=== PATIENT | female | born 2000 | race Caucasian/White ===

== ENCOUNTER 2022-12-01 19:14 | Emergency (ER) | payer MEDICAID, OTHER ==
[~2022-12-01] VITALS: Ht 170.2 cm; Wt 106.8 kg
[2022-12-01] MEDS ORDERED: LIDOCAINE 1% HCL (LOCAL ANESTH.) INJ 20ML MDV ID ONE (23:15)
[2022-12-01] MEDS ORDERED: TETANUS-DIPTH-ACEL PERTUSSIS 0.5ML SYR Tdap IM ONE (23:15)
[2022-12-02 01:00] VITALS: BP 119/74
== END 2022-12-02 01:13 | disposition home or self-care (01) ==
LOC: ER 19:14
DX: S61.211A Laceration without foreign body of left index finger without damage to nail, initial encounter (principal); Z88.0 Allergy status to penicillin; W26.8XXA Contact with other sharp object(s), not elsewhere classified, initial encounter; Y93.89 Activity, other specified; Y92.89 Other specified places as the place of occurrence of the external cause; Y99.8 Other external cause status
CPT/HCPCS: 12001; 90471; 90715; 99283; J2001

== ENCOUNTER 2024-06-04 11:51 | Emergency (ER) | payer MEDICAID ==
[~2024-06-04] VITALS: Ht 170.2 cm; Wt 89.8 kg
[2024-06-04 12:39] LABS: Urine Bacteria None Seen /hpf (None Seen)
[2024-06-04 12:54] VITALS: BP 148/90; PULSE 66; RESP 16; TEMP 98.6; O2SAT 100
[2024-06-04 12:56] LABS: Urine Blood Negative /uL (Negative); Urine Clarity Turbid (Clear); Urine Color Light-Yellow (Yellow); Urine Mucus FEW (None Seen); Urine Protein, UAD Negative (Negative); Urine Specific Gravity 1.026 (1.001-1.035); Urine Urobilinogen Normal (Negative); Urine WBC 2 /hpf (0 - 5); Urine pH 5.5 (5.0-9.0)
[2024-06-04 13:12] LABS: Basophils # (auto) 0.1 10 ^3/uL (0-0.2); Basophils % (auto) 0.7 % (0.0-2.0); Eosinophils # (auto) 0.3 10 ^3/uL (0-0.8); Hematocrit 40.2 % (36.0-46.0); Hemoglobin 13.8 g/dL (12.2-16.2); Lymphocytes # (auto) 1.7 10 ^3/uL (0.4-5.4); Lymphocytes % (auto) 23.2 % (10.0-50.0); Mean Corpuscular Hemoglobin 31.2 pg (28.0-32.0); Mean Corpuscular Hgb Conc. 34.3 g/dL (32.0-36.0); Mean Corpuscular Volume 90.8 fL (80.0-100.0); Monocytes # (auto) 0.4 10 ^3/uL (0-1.3); Neutrophils # (auto) 4.8 10 ^3/uL (1.6-8.6); Neutrophils % (auto) 66.1 % (37.0-80.0); Platelet Count (auto) 238 10^3/uL (140-450); Red Blood Cells 4.42 10^6/uL (4.0-5.20); White Blood Cell 7.3 10^3/uL (4.4-10.8)
== END 2024-06-04 13:52 | disposition home or self-care (01) ==
LOC: ER 11:51
DX: R10.2 Pelvic and perineal pain (principal); Z32.02 Encounter for pregnancy test, result negative; Z88.0 Allergy status to penicillin
CPT/HCPCS: 36415; 81001; 81025; 84702; 85025

== ENCOUNTER 2025-02-12 14:36 | Emergency (ER) | payer MEDICAID ==
[~2025-02-12] VITALS: Ht 170.2 cm; Wt 86.6 kg
--- NOTE | 2025-02-12 15:57 | ED.PDOC ---
History of present illness HPI Comments HPI: Poor Historian. 25-year-old female presents to emergency department for evaluation of concerns about the tip of her tongue having some bumps. Patient denies any pain in her tongue or pain anywhere in her body. She was evaluated at the emergency department at [facility] twice and was sent home because there was no acute findings. Patient follow up with her dentist the following day who told her the same thing as well. Patient comes in here for reassurance. Patient has history of anxiety. Denies any other acute symptoms. Past Medical History: Anxiety Past Surgical History: REVIEW OF SYSTEMS: CONSTITUTIONAL: Denies acute: fever, diaphoresis, chills, generalized weakness. HEAD: Denies acute: headache, photophobia Eyes: Denies acute: Double vision, vision loss, eye pain, eye discharge. EARS: Denies acute: tinnitus, hearing loss, ear discharge, ear pain, THROAT: Denies acute: sore throat, swelling, difficulty swallowing , pain with swallowing, change in voice. NECK: Denies acute: neck pain, neck swelling, stiff neck. HEART: Denies acute : chest pain, palpitations, LUNGS: Denies acute: SOB, wheezing, cough, hemoptysis ABDOMEN: Denies acute: abdominal pain, Nausea, Vomiting, diarrhea, melena , hematemesis, hematochezia SKIN: Denies acute: rash, redness, lesions, itchiness. EXTREMITIES: Denies acute: calf pain, numbness, tingling, weakness, denies pain in extremity. Denies acute: Low back pain. Neuro: Denies acute: focal neurological deficit, motor or sensory focal neurological deficit, tremors, seizure like activity, confusion, dizziness, change in mental status, loss of bowel or bladder function, cauda equina like symptoms. : Denies acute: dysuria, hematuria, flank pain, increase in urinary frequency. PSYCH: Denies acute: hallucination, suicidal ideation, homicidal ideation. FEMALE: Denies acute: abnormal vaginal bleeding, foul odor, unusual discharge. PHYSICAL EXAM: General: ----no----acute distress, awake and alert. Head: normocephalic, atraumatic. Neck: supple, trachea is midline, no swelling. No lymphadenopathy Throat: Normal phonation. No swelling, no exudates, no erythema, no obstruction, no drooling, evaluation of the tip of the tongue where patient has some concerns that she thinks it might have some lesions or bumps on it. The tongue looks completely normal. No swelling, no redness, no lesions, nontender to palpation. Patient denies any pain in her tongue she just thinks that when she looked at her tongue that there is possibly some bumps at the tip of her tongue. Eyes:, no erythema, no purulent discharge, no proptosis, no icterus. Heart: regular rate, regular rhythm, no significant murmur appreciated. Lungs: no apparent respiratory distress, Able to speak in full sentences. No wheezing, no rhonchi, no crackles. No stridors Clear to auscultation bilaterally. Abdomen: non tender to palpation, non distended, soft, no guarding, no rebound, + bowel sounds. Neuro: Awake, Alert, oriented to name, self, situation, follows commands GCS=15. Speech is normal. Skin: no petechia, no purpura, no cyanosis, non-pale, not jaundice. Lower extremities: --no - Pitting edema no deformity, no focal swelling, no calf TTP. Makes eye contact. moves all four extremities. Face: no apparent facial droop. Ambulating in the ED independently. No nuchal rigidity, Kernig's sign, Brudzinski's sign, no meningeal signs. 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 Was a procedure done?: No Differential Diagnosis (DM) Differential Diagnosis: N/A X-Ray, Labs, Meds, VS Vital Signs Date Time Temp Pulse Resp B/P (MAP) Pulse Ox O2 Delivery O2 Flow Rate FiO2 02/12/25 16:43 66 02/12/25 16:43 98.6 66 16 147/83 (104) 98 98.6 02/12/25 14:53 97.8 74 18 148/87 (107) 99 97.8 Time of 1ST Reevaluation: 15:56 Reevaluation 1ST: Patient Education/Counseling: Diagnosis, Treatment Family Education/Counseling: Other Comments Patient presented with the above HPI.---tip of tongue complaint---workup was initiated. patient was found with the above mentioned diagnosis. the following medications were ordered: please refer to order lists of meds and tests obtained by myself Dr. Mejia. Patient ED course and VS have been stabilized. Patient has been reassessed in the ED and remained in a stable condition. Pertinent incidental findings were discussed with the patient and/or family. Patient/family voices understanding and is agreeable with plan. Patient has been observed in the ED adequate length of time to insure improvement/stability. Escalation of care considered: Consideration of escalation to observation or admission No acute findings whatsoever. All are normal findings in the oral mucosa and the tongue. No secondary findings to suggest abnormality. Patient denies any pain or swelling. Patient was DISCHARGED home in a stable condition. All the reports of any imaging studies that were ordered by myself were reviewed by myself. Departure 1 Departure Time of Disposition: 15:56 Impression: Primary Impression: Wellness examination Disposition: 01 HOME / SELF CARE / HOMELESS Condition: Stable Additional Instructions: Additional instructions: You MUST follow-up with your primary care/family doctor in 1 to 2 days. If you are unable to see your primary care/family doctor, please return to our emergency room for re-assessment and re-evaluation in 1 to 2 days. Return to the emergency room here in our facility or to the nearest ER [facility] if your symptoms change or worsen. CONSULTATIONS: you MUST Follow-up for consultation as soon as possible with: -ENT doctor in 1-2 days. Please call for appointment You MUST call the consultants office yourself to make an appointment. You may need to arrange that through your insurance and/or your primary/family doctor. If you are unable to see the office [facility] consultant in 1 to 2 days, you must return to our emergency room (or any other ER of your choice) for re-assessment and re- evaluation. Adequate fluid hydration. Discharged With: Self Critical Care Note Critical Care Time?: No LEEANN MEJIA DO Feb 12, 2025 15:57
[2025-02-12 16:43] VITALS: BP 147/83; PULSE 66; RESP 16; TEMP 98.6; O2SAT 98
== END 2025-02-12 16:51 | disposition home or self-care (01) ==
LOC: ER 14:44
DX: Z00.00 Encounter for general adult medical examination without abnormal findings (principal); R51.9 Headache, unspecified; F41.9 Anxiety disorder, unspecified; Z88.0 Allergy status to penicillin

== ENCOUNTER 2025-02-15 16:50 | Emergency (ER) | payer MEDICAID ==
[~2025-02-15] VITALS: Ht 170.2 cm; Wt 88.9 kg
[2025-02-15 18:28] LABS: Basophils # (auto) 0 10 ^3/uL (0-0.2); Basophils % (auto) 0.2 % (0.0-2.0); Eosinophils # (auto) 0 10 ^3/uL (0-0.8); Eosinophils % (auto) 0.3 % (0.0-7.0); Hematocrit 40.9 % (36.0-46.0); Hemoglobin 13.9 g/dL (12.2-16.2); Lymphocytes # (auto) 0.6 10 ^3/uL (0.4-5.4); Mean Corpuscular Hemoglobin 30.6 pg (28.0-32.0); Mean Corpuscular Volume 90.1 fL (80.0-100.0); Monocytes # (auto) 0.1 10 ^3/uL (0-1.3); Monocytes % (auto) 1.4 % (0.0-12.0); Neutrophils # (auto) 7.9 10 ^3/uL (1.6-8.6); Neutrophils % (auto) 91.1 % (37.0-80.0); Platelet Count (auto) 224 10^3/uL (140-450); Red Blood Cells 4.54 10^6/uL (4.0-5.20); Red Cell Distribution Width 12.2 % (11.8-14.3); White Blood Cell 8.7 10^3/uL (4.4-10.8)
[2025-02-15 18:39] LABS: Alanine Aminotransferase 11 U/L (7-40); Albumin 4.7 g/dL (3.2-4.8); Alkaline Phosphatase 50 U/L (46-116); Anion Gap 9 (5-15); Aspartate Aminotransferase 10 U/L (13-40); BUN/Creatinine Ratio 10.5 (10.0-20.0); Blood Urea Nitrogen 11 mg/dL (9-23); Calcium 10.4 mg/dL (8.7-10.4); Carbon Dioxide 24 mmol/L (20-31); Chloride 108 mmol/L (98-107); Glucose 118 mg/dL (74-106); Sodium 141 mmol/L (136-145); Total Protein 7.9 g/dL (5.7-8.2)
[2025-02-15 18:40] LABS: Bilirubin, Total 0.3 mg/dL (0.2-1.0)
--- NOTE | 2025-02-15 19:50 | ED.PDOC ---
History of Present Illness HPI Comments 25-year-old female complaining of left-sided facial numbness. States her face feels mildly swollen. Says she has been having some mild anxiety over the last few days. States she recently started taking prednisone 20 mg today. She was instructed to do so by her primary care doctor for possible see the allergies. Patient denies any trouble speaking denies any trouble swallowing. Chief Complaint: Left Sided Weakness Time Seen by MD: 17:07 Primary Care Provider: ? Reviewed Notes: Nurses Notes Allergies: Coded Allergies: Penicillins (Verified Allergy, Unknown, 12/01/22) Information Source: Patient Mode of Arrival: Ambulatory Past Medical History PAST MEDICAL HISTORY: Anxiety Surgical History: Denies all surgeries AUTOMATION ENGINEER History: No Pertinent AUTOMATION ENGINEER History Family History Family History: Reviewed,noncontributory to illness, No family hx of Cancer, No family hx of DM, No family hx of Heart valentin, No family hx of HTN, No family hx ofKidney valentin, No family hx of Liver valentin, No family hx of Lung valentin, No family hx of Stroke Social History Smoker: Non-Smoker Alcohol: Denies ETOH Use Drugs: Denies Drug Use Lives In: Home Constitutional: denies: chills, diaphoresis, fatigue, fever, malaise, sweats, weakness, others EENTM: denies: blurred vision, double vision, ear bleeding, ear discharge, ear drainage, ear pain, ear ringing, eye pain, eye redness, hearing loss, mouth pain, mouth swelling, nasal discharge, nose bleeding, nose congestion, nose pain, photophobia, tearing, throat pain, throat swelling, voice changes, others Respiratory: denies: cough, hemoptysis, orthopnea, SOB at rest, shortness of breath, SOB with excertion, stridor, wheezing, others Cardiovascular: denies: chest pain, dizzy spells, diaphoresis, Dyspnea on exertion, edema, irregular heart beat, left arm pain, lightheadedness, palpitations, PND, syncope, others Gastrointestinal: denies: abdomen distended, abdominal pain, blood streaked bowels, constipated, diarrhea, dysphagia, difficulty swallowing, hematemesis, melena, nausea, poor appetite, poor fluid intake, rectal bleeding, rectal pain, vomiting, others Genitourinary: denies: abnormal vagina bleeding, burning, dyspareunia, dysuria, flank pain, frequency, hematuria, incontinence, pain, , vagina discharge, urgency, others Neurological: reports: left sided numbness; denies: dizziness, fainting, headache, left sided weakness, numbness, paresthesia, pre-existing deficit, right sided numbness, right sided weakness, seizure, speech problems, tingling, tremors, weakness, others Musculoskeletal: denies: back pain, gout, joint pain, joint swelling, muscle pain, muscle stiffness, neck pain, others Integumetry: denies: bruises, change in color, change in hair/nails, dryness, laceration, lesions, lumps, rash, wounds, others Allergic/Immunocompromised: denies: Difficulty Healing, Frequent Infections, Hives, Itching, others Hematologic/Lymphatic: denies: anemia, blood clots, easy bleeding, easy bruising, swollen glands, others Physical Exam General Appearance: No Apparent Distress, Normal HEENT: Normal ENT Inspection, Pharynx Normal, TMs Normal Neck: Full Range of Motion, Non-Tender, Normal, Normal Inspection Respiratory: Chest Non-Tender, Lungs Clear, No Accessory Muscle Use, No Respiratory Distress, Normal Breath Sounds Cardiovascular: No Edema, No JVD, No Murmur, No Gallop, Normal Peripheral Pulses, Regular Rate/Rhythm Breast Exam: Deferred Gastrointestinal: No Organomegaly, Non Tender, No Pulsatile Mass, Normal Bowel Sounds, Soft Genitalia: Deferred Pelvic: Deferred Rectal: Deferred Extremities: No calf tenderness, Normal capillary refill, Normal inspection, Normal range of motion, Non-tender, No pedal edema Musculoskeletal : Apperance: Normal Neurologic: Alert, life claims examiner II-XII nml as Tested, No Motor Deficits, Normal Affect, Normal Mood, No Sensory Deficits Cerebellar Function: Normal Reflexes: Normal Skin: Dry, Normal Color, Warm Lymphatic: No Adenopathy Was a procedure done? Was a procedure done?: No Differential Dx Considerations may include: Foss's palsy, CVA, TIA, adverse medication reaction. X-Ray, Labs, Meds, VS Vital Signs Date Time Temp Pulse Resp B/P (MAP) Pulse Ox O2 Delivery O2 Flow Rate FiO2 02/15/25 17:00 98.8 79 16 145/82 (103) 98 98.8 Lab Test 02/15/25 18:12 Range/Units White Blood Count 8.7 4.4-10.8 10^3/uL Red Blood Count 4.54 4.0-5.20 10^6/uL Hemoglobin 13.9 12.2-16.2 g/dL Hematocrit 40.9 36.0-46.0 % Mean Corpuscular Volume 90.1 80.0-100.0 fL Mean Corpuscular Hemoglobin 30.6 28.0-32.0 pg Mean Corpuscular Hemoglobin Concent 34.0 32.0-36.0 g/dL Red Cell Distribution Width 12.2 11.8-14.3 % Platelet Count 224 140-450 10^3/uL Mean Platelet Volume 7.7 6.9-10.8 fL Neutrophils (%) (Auto) 91.1 H 37.0-80.0 % Lymphocytes (%) (Auto) 7.0 L 10.0-50.0 % Monocytes (%) (Auto) 1.4 0.0-12.0 % Eosinophils (%) (Auto) 0.3 0.0-7.0 % Basophils (%) (Auto) 0.2 0.0-2.0 % Neutrophils # (Auto) 7.9 1.6-8.6 10 ^3/uL Lymphocytes # (Auto) 0.6 0.4-5.4 10 ^3/uL Monocytes # (Auto) 0.1 0-1.3 10 ^3/uL Eosinophils # (Auto) 0 0-0.8 10 ^3/uL Basophils # (Auto) 0 0-0.2 10 ^3/uL Nucleated Red Blood Cells 0.0 % Sodium Level 141 136-145 mmol/L Potassium Level 5.0 3.5-5.1 mmol/L Chloride Level 108 H 98-107 mmol/L Carbon Dioxide Level 24 20-31 mmol/L Anion Gap 9 5-15 Blood Urea Nitrogen 11 9-23 mg/dL Creatinine 1.05 H 0.550-1.02 mg/dL Glomerular Filtration Rate Calc 77 >90 mL/min BUN/Creatinine Ratio 10.5 10.0-20.0 Serum Glucose 118 H 74-106 mg/dL Calcium Level 10.4 8.7-10.4 mg/dL Total Bilirubin 0.3 0.2-1.0 mg/dL Aspartate Amino Transferase (AST) 10 L 13-40 U/L Alanine Aminotransferase (ALT) 11 7-40 U/L Alkaline Phosphatase 50 46-116 U/L Total Protein 7.9 5.7-8.2 g/dL Albumin 4.7 3.2-4.8 g/dL X-Ray, Labs, Meds, VS Comment Imaging: X-rays and CT scans were reviewed and interpreted by this provider, imaging shows no fractures and no pathological disease. Pending radiology jared henao Laboratory: Labs reviewed and interpreted by this provider. No significant abnormalities noted. Patient has prior medical visits reviewed. Med reconciliation performed Vital signs reviewed Time of 1ST Reevaluation: 19:50 Reevaluation 1ST: Improved Patient Education/Counseling: Diagnosis, Treatment, Need For Follow Up (Advised to discontinue prednisone and follow up with PCP. Return to emergency department if symptoms worsen.) Family Education/Counseling: Diagnosis Departure 1 Departure Time of Disposition: 19:49 Impression: Primary Impression: Adverse reaction to drug Qualified Codes: T50.905A - Adverse effect of unspecified drugs, medicaments and biological substances, initial encounter Disposition: HOME / SELF CARE / HOMELESS Condition: Fair Critical Care Note Critical Care Time?: No Stability Stability form required: No Heart Score Heart Score: Heart Score Response (Comments) Value History N/A 0 EKG N/A 0 Age N/A 0 Risk Factors N/A 0 Troponin N/A 0 Total 0 FAIZAN GALLAGHER CUT ORDER HAND Feb 15, 2025 19:50
[2025-02-15 19:56] VITALS: BP 131/78; PULSE 67; RESP 18; TEMP 97.8; O2SAT 67
== END 2025-02-15 20:00 | disposition home or self-care (01) ==
LOC: ER 16:50
DX: R22.0 Localized swelling, mass and lump, head (principal); T38.0X5A Adverse effect of glucocorticoids and synthetic analogues, initial encounter; F41.9 Anxiety disorder, unspecified; Z88.0 Allergy status to penicillin; Y92.89 Other specified places as the place of occurrence of the external cause
CPT/HCPCS: 36415; 80053; 85025

== ENCOUNTER 2025-02-16 09:51 | Emergency (ER) | payer MEDICAID ==
[~2025-02-16] VITALS: Ht 170.2 cm; Wt 86.8 kg
--- NOTE | 2025-02-16 10:18 | ED.PDOC ---
Eye-HPI HPI Comments 25 y/o F, with PMHx of PTSD and anxiety presents to the ED for CC of eye problem. Patient states, she was prescribed prednisone 20mg x2days ago for allergies by her PCP and has since, been experiencing left sided facial numbness, left eye pressure, and blurred vision. Patient reports, being seen at [facility] yesterday (02/16/25) for SS which have since, not resolved. Patient denies trouble speaking, trouble swallowing, or rash. No other symptoms or modifying factors present at this time. Chief Complaint: Eye Problem Time Seen by MD: 10:00 Primary Care Provider: AMI Reviewed Notes: Nurses Notes, Medications, Allergies Allergies: Coded Allergies: Penicillins (Verified Allergy, Unknown, 12/01/22) Information Source: Patient Mode of Arrival: Ambulatory Timing: Days Duration: Since onset Prehospital treatment: None Eye Location: Left Lids: Normal Conjunctiva: Normal Cornea: Normal Pupils: Normal EOM: Normal Fundus: Normal Slit lamp exam: Normal Anterior chamber: Normal Mouth: Normal ENT Ear Exam: Normal Nose: Normal Sinuses: Normal Oropharynx: Normal Throat Exposed to: None History of: None Last Tetanus: Unknown Associated signs and symptoms: None Past Medical History PAST MEDICAL HISTORY: Anxiety Past Medical History (Other): PTSD Surgical History: Denies all surgeries ENROLLMENT ELIGIBILITY REPRESENTATIVE History: No Pertinent ENROLLMENT ELIGIBILITY REPRESENTATIVE History Family History Family History: Reviewed,noncontributory to illness, No family hx of Cancer, No family hx of DM, No family hx of Heart valentin, No family hx of HTN, No family hx ofKidney valentin, No family hx of Liver valentin, No family hx of Lung valentin, No family hx of Stroke Social History Smoker: Non-Smoker Alcohol: Denies ETOH Use Drugs: Denies Drug Use Lives In: Home Constitutional: denies: chills, diaphoresis, fatigue, fever, malaise, sweats, weakness, others EENTM: reports: blurred vision; denies: double vision, ear bleeding, ear discharge, ear drainage, ear pain, ear ringing, eye pain, eye redness, hearing loss, mouth pain, mouth swelling, nasal discharge, nose bleeding, nose congestion, nose pain, photophobia, tearing, throat pain, throat swelling, voice changes, others Respiratory: denies: cough, hemoptysis, orthopnea, SOB at rest, shortness of breath, SOB with excertion, stridor, wheezing, others Cardiovascular: denies: chest pain, dizzy spells, diaphoresis, Dyspnea on ex ertion, edema, irregular heart beat, left arm pain, lightheadedness, palpitations, PND, syncope, others Gastrointestinal: denies: abdomen distended, abdominal pain, blood streaked bowels, constipated, diarrhea, dysphagia, difficulty swallowing, hematemesis, melena, nausea, poor appetite, poor fluid intake, rectal bleeding, rectal pain, vomiting, others Genitourinary: denies: abnormal vagina bleeding, burning, dyspareunia, dysuria, flank pain, frequency, hematuria, incontinence, pain, , vagina discharge, urgency, others Neurological: denies: dizziness, fainting, headache, left sided numbness, left sided weakness, numbness, paresthesia, pre-existing deficit, right sided numbness, right sided weakness, seizure, speech problems, tingling, tremors, weakness, others Musculoskeletal: denies: back pain, gout, joint pain, joint swelling, muscle pain, muscle stiffness, neck pain, others Integumetry: denies: bruises, change in color, change in hair/nails, dryness, laceration, lesions, lumps, rash, wounds, others Allergic/Immunocompromised: denies: Difficulty Healing, Frequent Infections, Hives, Itching, others Hematologic/Lymphatic: denies: anemia, blood clots, easy bleeding, easy bruising, swollen glands, others Endocrine: denies: excessive hunger, excessive sweating, excessive thirst, excessive urination, flushing, intolerance to cold, intolerance to heat, unexplained weight gain, unexplained weight loss, others Psychiatric: denies: anxiety, bipolar disorder, depression, hopeless, panic disorder, schizophrenia, sleepless, suicidal, others All Other Systems: Reviewed and Negative Physical Exam General Appearance: No Apparent Distress, Normal HEENT: Normal ENT Inspection, Pharynx Normal Neck: Full Range of Motion, Non-Tender, Normal, Normal Inspection Respiratory: Chest Non-Tender, Lungs Clear, No Accessory Muscle Use, No Respi ratory Distress, Normal Breath Sounds Cardiovascular: No Edema, No Murmur, No Gallop, Normal Peripheral Pulses, Regular Rate/Rhythm Breast Exam: Deferred Gastrointestinal: No Organomegaly, Non Tender, No Pulsatile Mass, Normal Bowel Sounds, Soft Genitalia: Deferred Pelvic: Deferred Rectal: Deferred Extremities: No calf tenderness, Normal capillary refill, Normal inspection, Normal range of motion, Non-tender, No pedal edema Musculoskeletal : Apperance: Normal Neurologic: Alert, color making supervisor II-XII nml as Tested, No Motor Deficits, Normal Affect, Normal Mood, No Sensory Deficits Cerebellar Function: Normal Reflexes: Normal Skin: Dry, Normal Color, Warm Lymphatic: No Adenopathy Was a procedure done? Was a procedure done?: No EENT DIFF Eye: Allergic Ear: N/A Nose: N/A Mouth: N/A Sore Throat: N/A X-Ray, Labs, Meds, VS Vital Signs Date Time Temp Pulse Resp B/P (MAP) Pulse Ox O2 Delivery O2 Flow Rate FiO2 02/16/25 10:43 69 18 99 Room Air 02/16/25 10:43 98.2 77 18 131/77 (95) 99 98.2 02/16/25 10:40 67 17 99 Room Air* 0 21 02/16/25 10:00 98.3 67 17 138/66 (90) 99 98.3 Lab Test 02/16/25 10:02 Range/Units POC Glucose 75 70-106 mg/dl [place] [id number] Ph: [phone] DIAGNOSTIC IMAGING Diagnostic Imaging Report : [id number] Signed PATIENT: SANDRA CARTER ACCT: [id number] UNIT: [id number] : 2000 LOC: ER ROOM / BED: / AGE / SEX: 25 / F ADM STATUS: REG ER SERVICE 1015 ORDERING PHYSICIAN: MELLO HEWITT MD PROCEDURE(s): HWOCT - HEAD WITHOUT CONTRAST REASON: left sided facial numbness ORDER NUMBER(s): [id number], ACCESSION NUMBER(s): [id number] CT HEAD WITHOUT CONTRAST INDICATION: left sided facial numbness EXAM DATE: 02/16/2025 10:30 AM COMPARISON: None RADIATION DOSE: CTDIvol: 53.99 mGy, DLP: 755.91 mGy*cm PROCEDURE: CT scans of the head were obtained from the vertex to the skull base. Sagittal and coronal reconstructions were provided. All CT scans at this medical facility are performed using dose modulation techniques as appropriate to a performed exam including the following: Automated exposure control was utilized; adjustment of the MA and/or KV according to patient size; and use of iterative reconstruction technique. FINDINGS: There is sulcal and ventricular prominence. The brainshows normal morphology and rasmussen-white matter differentiation, without intracranial hemorrhage, extra-axial fluid collection, mass effect or acute large vessel infarct. The ventricles are normal in size. The basal cisterns are patent. The skull and visible facial bones are intact. The paranasal sinuses, mastoid air cells and middle ear cavities are well-aerated. The soft tissues of the scalp are unremarkable. IMPRESSION: No acute intracranial abnormality. ATED BY: OSBALDO BAUER MD DICTATED DATE/TIME: 02/16/25 1053 SIGNED BY: OSBALDO BAUER MD SIGNED DATE/TIME: 02/16/25 1053 CC: Time of 1ST Reevaluation: 10:30 Reevaluation 1ST: Unchanged Patient Education/Counseling: Diagnosis, Treatment Family Education/Counseling: No Family Present Departure 1 Departure Time of Disposition: 11:51 (Patient's workup is benign. Patient is likely having anxiety reaction. We will discharge patient home with outpatient follow up) Impression: Primary Impression: Anxiety reaction Additional Impression: Paresthesia Disposition: 01 HOME / SELF CARE / HOMELESS Condition: Stable Referrals: STEVE BAUER MD Additional Instructions: Your workup today was benign. You were referred to neurology. Please call for an appointment. If your symptoms worsen or if any other concerns please return to the emergency room. Discharged With: Self Critical Care Note Critical Care Time?: No Stability Stability form required: No Heart Score Heart Score: Heart Score Response (Comments) Value History N/A 0 EKG N/A 0 Age N/A 0 Risk Factors N/A 0 Troponin N/A 0 Total 0 I personally scribed for MELLO HEWITT MD ([email or web address]) on 02/16/25 at 10:18. Electronically submitted by Carmen Smart ([email or web address]). I personally scribed for MELLO HEWITT MD ([email or web address]) on 02/16/25 at 11:25. Electronically submitted by Carmen Smart ([email or web address]). MELLO HEWITT MD Feb 16, 2025 10:18
[2025-02-16 10:40] VITALS: PULSE 67; RESP 17; O2SAT 99
[2025-02-16 10:43] VITALS: BP 131/77; PULSE 69; RESP 18; TEMP 98.2; O2SAT 99
--- NOTE | 2025-02-16 10:55 | DVH ---
CT HEAD WITHOUT CONTRAST INDICATION: left sided facial numbness EXAM DATE: 02/16/2025 10:30 AM COMPARISON: None RADIATION DOSE: CTDIvol: 53.99 mGy, DLP: 755.91 mGy*cm PROCEDURE: CT scans of the head were obtained from the vertex to the skull base. Sagittal and coronal reconstructions were provided. All CT scans at this medical facility are performed using dose modulation techniques as appropriate t o a performed exam including the following: Automated exposure control was utilized; adjustment of th e MA and/or KV according to patient size; and use of iterative reconstruction technique. FINDINGS: There is sulcal and ventricular prominence. The brainshows normal morphology and rasmussen-whi te matter differentiation, without intracranial hemorrhage, extra-axial fluid collection, mass effect or acute large vessel infarct. The ventricles are normal in size. The basal cisterns are patent. The skull and visible facial bones are intact. The paranasal sinuses, mastoid air cells and middle ear c avities are well-aerated. The soft tissues of the scalp are unremarkable. IMPRESSION: No acute intracranial abnormality.
== END 2025-02-16 11:59 | disposition home or self-care (01) ==
LOC: ER 09:51
DX: F41.1 Generalized anxiety disorder (principal); R20.2 Paresthesia of skin; R20.0 Anesthesia of skin; H53.8 Other visual disturbances; H57.89 Other specified disorders of eye and adnexa; Z88.0 Allergy status to penicillin
CPT/HCPCS: 70450; 82947; 82962

== ENCOUNTER 2025-02-17 14:48 | Inpatient (IN) | payer MEDICAID ==
[~2025-02-17] VITALS: Ht 170.2 cm; Wt 88.3 kg
--- NOTE | 2025-02-17 16:43 | ED.PDOC ---
Eye-HPI HPI Comments This is a 25 year old female presenting to the ED with chief complaint of left eye blurred vision. Patient reports that she has continued to experience left eye blurred vision for the past few days, being seen previously yesterday for the same concern. Patient relays that she visited her PCP today and was told it may be a sinus issue and her anxiety, prescribing her antibiotics. Patient denies any N/V, headache, dizziness, vision loss, or photophobia. Chief Complaint: Eye Problem Time Seen by MD: 16:39 Primary Care Provider: KAYCEE Field Notes: Nurses Notes, Medications, Allergies Allergies: Coded Allergies: Penicillins (Verified Allergy, Unknown, 12/01/22) Information Source: Patient Mode of Arrival: Ambulatory Timing: Days Duration: Since onset Prehospital treatment: None Eye Location: Left Lids: Normal Conjunctiva: Normal Cornea: Normal Pupils: Normal EOM: Normal Fundus: Normal Anterior chamber: Normal Past Medical History PAST MEDICAL HISTORY: Anxiety Surgical History: Denies all surgeries [employer] History: No Pertinent [employer] History Family History Family History: Reviewed,noncontributory to illness, No family hx of Cancer, No family hx of DM, No family hx of Heart valentin, No family hx of HTN, No family hx ofKidney valentin, No family hx of Liver valentin, No family hx of Lung valentin, No family hx of Stroke Social History Smoker: Non-Smoker Alcohol: Denies ETOH Use Drugs: Denies Drug Use Lives In: Home Constitutional: denies: chills, diaphoresis, fatigue, fever, malaise, sweats, weakness, others EENTM: reports: blurred vision; denies: double vision, ear bleeding, ear discharge, ear drainage, ear pain, ear ringing, eye pain, eye redness, hearing loss, mouth pain, mouth swelling, nasal discharge, nose bleeding, nose congestion, nose pain, photophobia, tearing, throat pain, throat swelling, voice changes, others Respiratory: denies: cough, hemoptysis, orthopnea, SOB at rest, shortness of breath, SOB with excertion, stridor, wheezing, others Cardiovascular: denies: chest pain, dizzy spells, diaphoresis, Dyspnea on e xertion, edema, irregular heart beat, left arm pain, lightheadedness, palpitations, PND, syncope, others Gastrointestinal: denies: abdomen distended, abdominal pain, blood streaked bowels, constipated, diarrhea, dysphagia, difficulty swallowing, hematemesis, melena, nausea, poor appetite, poor fluid intake, rectal bleeding, rectal pain, vomiting, others Genitourinary: denies: abnormal vagina bleeding, burning, dyspareunia, dysuria, flank pain, frequency, hematuria, incontinence, pain, , vagina discharge, urgency, others Neurological: denies: dizziness, fainting, headache, left sided numbness, left sided weakness, numbness, paresthesia, pre-existing deficit, right sided numbness, right sided weakness, seizure, speech problems, tingling, tremors, weakness, others Musculoskeletal: denies: back pain, gout, joint pain, joint swelling, muscle pain, muscle stiffness, neck pain, others Integumetry: denies: bruises, change in color, change in hair/nails, dryness, laceration, lesions, lumps, rash, wounds, others Allergic/Immunocompromised: denies: Difficulty Healing, Frequent Infections, Hives, Itching, others Hematologic/Lymphatic: denies: anemia, blood clots, easy bleeding, easy bruising, swollen glands, others Endocrine: denies: excessive hunger, excessive sweating, excessive thirst, excessive urination, flushing, intolerance to cold, intolerance to heat, unexplained weight gain, unexplained weight loss, others Psychiatric: reports: anxiety; denies: bipolar disorder, depression, hopeless, panic disorder, schizophrenia, sleepless, suicidal, others All Other Systems: Reviewed and Negative Physical Exam General Appearance: No Apparent Distress, Normal HEENT: Normal ENT Inspection, Pharynx Normal, TMs Normal Neck: Full Range of Motion, Non-Tender, Normal, Normal Inspection Respiratory: Chest Non-Tender, Lungs Clear, No Accessory Muscle Use, No Respiratory Distress, Normal Breath Sounds Cardiovascular: No Edema, No JVD, No Murmur, No Gallop, Normal Peripheral Pulses, Regular Rate/Rhythm Breast Exam: Deferred Gastrointestinal: No Organomegaly, Non Tender, No Pulsatile Mass, Normal Bowel Sounds, Soft Genitalia: Deferred Pelvic: Deferred Rectal: Deferred Extremities: No calf tenderness, Normal capillary refill, Normal inspection, Normal range of motion, Non-tender, No pedal edema Musculoskeletal : Apperance: Normal Neurologic: Alert, transportation worker II-XII nml as Tested, No Motor Deficits, Normal Affect, Normal Mood, No Sensory Deficits Cerebellar Function: Normal Reflexes: Normal Skin: Dry, Normal Color, Warm Lymphatic: No Adenopathy Was a procedure done? Was a procedure done?: No EENT DIFF Eye: Allergic, Viral, Other (Migraine) Ear: N/A Nose: N/A Mouth: N/A Sore Throat: N/A X-Ray, Labs, Meds, VS Vital Signs Date Time Temp Pulse Resp B/P (MAP) Pulse Ox O2 Delivery O2 Flow Rate FiO2 02/17/25 17:02 98.1 64 20 146/74 (98) 100 98.1 02/17/25 15:02 98.5 70 18 139/87 (104) 97 98.5 Lab Test 02/17/25 16:46 Range/Units White Blood Count 7.7 4.4-10.8 10^3/uL Red Blood Count 4.59 4.0-5.20 10^6/uL Hemoglobin 14.1 12.2-16.2 g/dL Hematocrit 41.3 36.0-46.0 % Mean Corpuscular Volume 90.1 80.0-100.0 fL Mean Corpuscular Hemoglobin 30.7 28.0-32.0 pg Mean Corpuscular Hemoglobin Concent 34.0 32.0-36.0 g/dL Red Cell Distribution Width 12.0 11.8-14.3 % Platelet Count 241 140-450 10^3/uL Mean Platelet Volume 7.6 6.9-10.8 fL Neutrophils (%) (Auto) 67.5 37.0-80.0 % Lymphocytes (%) (Auto) 25.2 10.0-50.0 % Monocytes (%) (Auto) 5.0 0.0-12.0 % Eosinophils (%) (Auto) 1.7 0.0-7.0 % Basophils (%) (Auto) 0.6 0.0-2.0 % Neutrophils # (Auto) 5.2 1.6-8.6 10 ^3/uL Lymphocytes # (Auto) 1.9 0.4-5.4 10 ^3/uL Monocytes # (Auto) 0.4 0-1.3 10 ^3/uL Eosinophils # (Auto) 0.1 0-0.8 10 ^3/uL Basophils # (Auto) 0 0-0.2 10 ^3/uL Nucleated Red Blood Cells 0.1 % Sodium Level 139 136-145 mmol/L Potassium Level 4.3 3.5-5.1 mmol/L Chloride Level 104 98-107 mmol/L Carbon Dioxide Level 24 20-31 mmol/L Anion Gap 11 5-15 Blood Urea Nitrogen 11 9-23 mg/dL Creatinine 0.94 0.550-1.02 mg/dL Glomerular Filtration Rate Calc 87 >90 mL/min BUN/Creatinine Ratio 11.7 10.0-20.0 Serum Glucose 82 74-106 mg/dL Calcium Level 10.6 H 8.7-10.4 mg/dL Time of 1ST Reevaluation: 17:39 Reevaluation 1ST: Unchanged Patient Education/Counseling: Diagnosis, Treatment Family Education/Counseling: No Family Present Additional Information Previous visits reviewed: 02/16/25 for anxiety reaction The following tests were ordered, and results were reviewed by me: CBC, BMP Additional Information was gathered from interviewing the following independent historians: None I reviewed and agreed with the following test results read by other providers: None I discussed treatment and results with medical personnel and: patient Comprehensive systems review obtained and negative except for what is stated in the HPI. Departure 1 Departure Time of Disposition: 17:32 (Patient likely with status migrainous. Patient with multiple visits here with left-sided I pain and blurry vision swallows left-sided headache. Patient had a CT scan yesterday which was benign. Patient with multiple visits to the ER and a primary care doctor without relief. We will admit patient for further workup) Impression: Primary Impression: Blurry vision, left eye Additional Impression: Migraine Qualified Codes: G43.111 - Migraine with aura, intractable, with status migrainosus Disposition: ADMITTED INPATIENT Admit to: Med Surg Condition: Serious Critical Care Note Critical Care Time?: No Stability Stability form required: No Heart Score Heart Score: Heart Score Response (Comments) Value History N/A 0 EKG N/A 0 Age N/A 0 Risk Factors N/A 0 Troponin N/A 0 Total 0 I personally scribed for MELLO HEWITT MD ([email or web address]) on 02/17/25 at 16:43. Electronically submitted by Zechariah Hdz ([email or web address]). MELLO HEWITT MD Feb 17, 2025 16:43
[2025-02-17 16:55] LABS: Basophils # (auto) 0 10 ^3/uL (0-0.2); Basophils % (auto) 0.6 % (0.0-2.0); Eosinophils # (auto) 0.1 10 ^3/uL (0-0.8); Eosinophils % (auto) 1.7 % (0.0-7.0); Hematocrit 41.3 % (36.0-46.0); Hemoglobin 14.1 g/dL (12.2-16.2); Lymphocytes # (auto) 1.9 10 ^3/uL (0.4-5.4); Lymphocytes % (auto) 25.2 % (10.0-50.0); Mean Corpuscular Hemoglobin 30.7 pg (28.0-32.0); Mean Corpuscular Volume 90.1 fL (80.0-100.0); Monocytes # (auto) 0.4 10 ^3/uL (0-1.3); Neutrophils # (auto) 5.2 10 ^3/uL (1.6-8.6); Neutrophils % (auto) 67.5 % (37.0-80.0); Nucleated Red Blood Cells % 0.1 %; Platelet Count (auto) 241 10^3/uL (140-450); Red Blood Cells 4.59 10^6/uL (4.0-5.20); White Blood Cell 7.7 10^3/uL (4.4-10.8)
[2025-02-17 17:05] LABS: Anion Gap 11 (5-15); Carbon Dioxide 24 mmol/L (20-31); Chloride 104 mmol/L (98-107); Potassium 4.3 mmol/L (3.5-5.1); Sodium 139 mmol/L (136-145)
[2025-02-17 17:11] LABS: BUN/Creatinine Ratio 11.7 (10.0-20.0); Blood Urea Nitrogen 11 mg/dL (9-23); Calcium 10.6 mg/dL (8.7-10.4); Glucose 82 mg/dL (74-106)
[2025-02-17] MEDS: SODIUM CHLORIDE 0.9% 1,000 ML IV ONE (18:30)
[2025-02-17] MEDS: ACETAMINOPHEN 325 MG TAB PO ONE (18:39)
[2025-02-17] MEDS: METOCLOPRAMIDE HCL 5MG/ml INJ 2ml VIAL IV ONE (18:39)
[2025-02-17 18:43] VITALS: PULSE 81; RESP 19; O2SAT 96
[2025-02-17] MEDS ORDERED: ONDANSETRON HCL 4 MG/2 ML VIAL IV PRN (20:45)
[2025-02-17] MEDS ORDERED: MORPHINE SULFATE INJ 2 MG/ml SYRG IV PRN ×2 (20:45)
[2025-02-17] MEDS ORDERED: DOCUSATE SOD 100 MG CAP PO PRN (20:45)
[2025-02-17] MEDS ORDERED: NITROGLYCERIN 0.4 MG SL TAB SL PRN (20:45)
[2025-02-17 21:30] LABS: Alanine Aminotransferase 16 U/L (7-40); Albumin 4.6 g/dL (3.2-4.8); Anion Gap 12 (5-15); BUN/Creatinine Ratio 11.4 (10.0-20.0); Bilirubin, Total 0.7 mg/dL (0.2-1.0); Blood Urea Nitrogen 10 mg/dL (9-23); CRP High Sensitivity 0.23 mg/dL (<1.0); Calcium 9.9 mg/dL (8.7-10.4); Carbon Dioxide 23 mmol/L (20-31); Chloride 105 mmol/L (98-107); Glucose 98 mg/dL (74-106); Sodium 140 mmol/L (136-145); Total Protein 7.6 g/dL (5.7-8.2)
[2025-02-17 21:31] LABS: Alkaline Phosphatase 42 U/L (46-116); Aspartate Aminotransferase 11 U/L (13-40); Blood Alcohol < 3.0 mg/dL (<10)
[2025-02-17 21:40] VITALS: O2SAT 100
--- NOTE | 2025-02-17 21:44 | DVH ---
Carotid Duplex Date: 02/17/2025 09:09 PM Clinical History: rule out any obstruction Comparison: None Technique: Duplex Doppler evaluation of the extracranial carotid and vertebral arteries including col or Doppler and spectral/pulsed waveform analysis was performed. Findings: RIGHT SIDE: The peak systolic velocities are 87 cm/s in the distal CCA and 114 cm/s in the proximal ICA.The ICA/C CA ratio is less than 2. The external carotid artery is patent with peak systolic velocity of 96 cm/s proximally. There is appropriate antegrade flow in the right vertebral artery. LEFT SIDE: The peak systolic velocities are 98 cm/s in the distal CCA and 125 cm/s in the proximal ICA.. The ICA /CCA ratio is less than 2. The external carotid artery is patent with peak systolic velocity of 83 cm/s proximally. There is appropriate antegrade flow in the left vertebral artery. IMPRESSION: 1. No hemodynamically significant stenosis noted in the right carotid system. 2. No hemodynamically significant stenosis noted in the left carotid system. 3. Reference: Radiology 2003; 229:340-346
[2025-02-17] MEDS: LORATADINE 10 MG TAB PO ONE (21:49)
[2025-02-17 21:50] VITALS: PULSE 76; RESP 16; O2SAT 100
--- NOTE | 2025-02-17 21:57 | DVHHPRES ---
History of Present Illness Resident Creating Document: MERCEDES DUMONT RESIDENT History of Present Illness Ms. Sesay, is a 25-year-old female with past medical history of obesity, allergic rhinitis, seasonal allergy, asthma, primary headache and anxiety presents to the ED with a chief complaint of blurred vision in the left eye, ongoing for several days. She arrived ambulatory and reports no prehospital treatment. She was evaluated yesterday for the same issue and followed up with her PCP today, who suggested the symptoms may be related to sinus issues and anxiety, prescribing antibiotics. She denies associated symptoms including nausea, vomiting, headache, dizziness, vision loss, or photophobia. On exami nation, all ocular structuresincluding lids, conjunctiva, cornea, pupils, extraocular movements, fundus, and anterior chamberwere normal and noncontrast CT head was negative as well. The differential diagnosis includes anxiety reaction and migraine with aura (intractable, with status migraines), given the patient's recurrent left-sided eye pain, blurry vision, and headache despite a benign CT scan and multiple prior evaluations without relief and recurrent ED visits was admitted to rule out acute neurovascular conditions to preserve vision. Last ED visit a day before. Her PCP is Dr. Burch. Past Medical History obesity, allergic rhinitis, seasonal allergy, asthma, primary headache and anxiety Family History: Hypertension Family History Grossly noncontributory, no hypo or hypercoagulable disorder Smoke: No ALCOHOL: rare Drugs: None Lives: with Family Domestic Violence: Neg Review of Systems Constitutional: No: Fever, Chills, Sweats, Weakness, Malaise, Other Eyes: No: Pain, Vision change, Conjunctivae inflammation, Eyelid inflammation, Other, Redness ENT: Nose congestion, Other (blurred vision); No: Ear pain, Ear discharge, Nose pain, Nose discharge, Mouth pain, Mouth swelling, Throat pain, Throat swelling Respiratory: No: Cough, Dry, Shortness of breath, SOB with excertion, Wheezing, Hemoptysis, Pleuritic Pain, Sputum, Wheezing, Other Cardiovascular: No: Chest Pain, Palpitations, Orthopnea, Paroxysmal Noc. Dyspnea, Edema, Lt Headedness, Other Gastrointestinal: No: Nausea, Vomiting, Abdominal Pain, Diarrhea, Constipation, Melena, Hematochezia, Other Genitourinary: No Dysuria, No Frequency, No Incontinence, No Hematuria, No Retention, No Other Skin: No: Rash, Lesions, Jaundice, Bruising, Other Neurological: No: Weakness, Numbness, Incoordination, Change in speech, Confusion, Seizures, Other Allergies: Coded Allergies: Penicillins (Verified Allergy, Unknown, 12/01/22) Medications Current Medications Medications Dose Ordered Sig/Erna Route Start Time Stop Time Status Last Admin Dose Admin Ondansetron HCl 4 mg Q4HP PRN IV 02/17/25 20:45 Docusate Sodium 100 mg BIDPRN PRN PO 02/17/25 20:45 Acetaminophen 650 mg Q6HP PRN PO 02/17/25 20:45 Morphine Sulfate 2 mg Q4HPRN PRN IV 02/17/25 20:45 Nitroglycerin 0.4 mg Q5MINP PRN SL 02/17/25 20:45 Morphine Sulfate 2 mg Q30M PRN IV 02/17/25 20:45 Hydroxyzine HCl 10 mg Q6HP PRN PO 02/17/25 21:15 Loratadine 10 mg DAILY PO 02/18/25 10:00 Albuterol 2.5 mg Q6HWA PRN NEB 02/17/25 21:15 Lactated Ringer's 1,000 ml @ 100 mls/hr Q10H IV 02/17/25 21:30 UNV Exam Vital Signs Vital Signs Date Time Temp Pulse Resp B/P (MAP) Pulse Ox O2 Delivery O2 Flow Rate FiO2 02/17/25 18:43 81 19 96 Room Air* 0 21 02/17/25 17:02 98.1 146/74 (98) 98.1 Exam General Appearance: No apparent distress; patient appears well and in normal condition. HEENT: Head atraumatic and normocephalic. Ears, nose, and throat inspection normal. Tympanic membranes and pharynx normal. Neck: Full range of motion, non-tender, no lymphadenopathy, normal inspection. Respiratory: Chest non-tender. Lungs clear to auscultation bilaterally. No use of accessory muscles. No respiratory distress. Breath sounds normal. Cardiovascular: Regular rate and rhythm. No murmurs, gallops, or rubs. No jugular venous distention (JVD). No peripheral edema. Peripheral pulses normal. Breast Exam: Deferred. Gastrointestinal: Abdomen soft, non-tender, no organomegaly, no pulsatile masses. Bowel sounds normal. Genitalia: Deferred. Pelvic: Deferred. Rectal: Deferred. Extremities: No calf tenderness. Normal capillary refill. No pedal edema. Normal inspection and range of motion. Non-tender. Musculoskeletal: Normal appearance. No deformities or abnormalities noted. Neurologic: Alert and oriented. Cranial nerves IIXII intact. No motor or sensory deficits. Normal mood and affect. Cerebellar Function: Normal coordination and balance. Reflexes: Normal deep tendon reflexes. Skin: Dry, warm, normal color. No rashes or lesions. Lymphatic: No adenopathy noted. Ophthalmoscopic examination -ve, visual acuity intact, extraocular muscle and neurovascular function grossly stable. Labs/Xrays Labs Test 02/17/25 21:03 02/17/25 16:46 Range/Units D-Dimer, Quantitative 0.20 0.0-0.49 mg/L FEU Sodium Level 140 136-145 mmol/L Potassium Level 4.0 3.5-5.1 mmol/L Chloride Level 105 98-107 mmol/L Carbon Dioxide Level 23 20-31 mmol/L Anion Gap 12 5-15 Blood Urea Nitrogen 10 9-23 mg/dL Creatinine 0.88 0.550-1.02 mg/dL Glomerular Filtration Rate Calc 95 >90 mL/min BUN/Creatinine Ratio 11.4 10.0-20.0 Serum Glucose 98 74-106 mg/dL Calcium Level 9.9 8.7-10.4 mg/dL Total Bilirubin 0.7 0.2-1.0 mg/dL Aspartate Amino Transferase (AST) 11 L 13-40 U/L Alanine Aminotransferase (ALT) 16 7-40 U/L Alkaline Phosphatase 42 L 46-116 U/L C-Reactive Protein High Sensitivity 0.23 <1.0 mg/dL Total Protein 7.6 5.7-8.2 g/dL Albumin 4.6 3.2-4.8 g/dL Plasma/Serum Blood Alcohol < 3.0 <10 mg/dL White Blood Count 7.7 4.4-10.8 10^3/uL Red Blood Count 4.59 4.0-5.20 10^6/uL Hemoglobin 14.1 12.2-16.2 g/dL Hematocrit 41.3 36.0-46.0 % Mean Corpuscular Volume 90.1 80.0-100.0 fL Mean Corpuscular Hemoglobin 30.7 28.0-32.0 pg Mean Corpuscular Hemoglobin Concent 34.0 32.0-36.0 g/dL Red Cell Distribution Width 12.0 11.8-14.3 % Platelet Count 241 140-450 10^3/uL Mean Platelet Volume 7.6 6.9-10.8 fL Neutrophils (%) (Auto) 67.5 37.0-80.0 % Lymphocytes (%) (Auto) 25.2 10.0-50.0 % Monocytes (%) (Auto) 5.0 0.0-12.0 % Eosinophils (%) (Auto) 1.7 0.0-7.0 % Basophils (%) (Auto) 0.6 0.0-2.0 % Neutrophils # (Auto) 5.2 1.6-8.6 10 ^3/uL Lymphocytes # (Auto) 1.9 0.4-5.4 10 ^3/uL Monocytes # (Auto) 0.4 0-1.3 10 ^3/uL Eosinophils # (Auto) 0.1 0-0.8 10 ^3/uL Basophils # (Auto) 0 0-0.2 10 ^3/uL Nucleated Red Blood Cells 0.1 % Assessment/Plan Assessment/Plan Assessment: #acute recurrent unilateral blurred vision migraine with aura, amaurosis fugax (transient monocular vision loss due to embolic or thrombotic causes), optic neuritis, retinal detachment, central retinal artery or vein occlusion, acute angle-closure glaucoma, uveitis, somatic disorder, vascular hyper viscosity, Giant Cell Arteritis (GCA), refractory disease, and functional visual loss (e.g., due to anxiety or malingering), especially when imaging such as CT is normal #Patient on OCP with estrogen, possible pseudotumor cerebri, MRI pending #Stroke and TIA less likely in young female, CT head negative #Penicillin allergy #Seasonal allergy with as needed diphenhydramine #Asthma, home albuterol rescue inhaler #Grade I obesity #allergic rhinitis, on fluticasone propionate #seasonal allergy #childhood asthma #primary headache, likely complex migraine #anxiety disorder #Essential hypertension, to look for, bp can be explained by anxiety and mild distress. #Mild hypercalcemia #Possible paranasal sinusitis, gram-ve/ gram+ve she was prescribed doxycycline outpatient [place] will continue for now Plan: #Rule out prior to radiology, MRI brain to rule out organic pathology, consider changing to alternate #weight loss, ocp change to alternative options of contraception #Check albumin for corrected hypercalcemia, iv hydration gentle continue #Overnight telemetry > downgrade to med-surg tomorrow, checking for arrhythmia with interval neurochecks #Rule out organic pathologies, ESR, CRP, UDS, D Dimer, pt/inr, TSH, EKG, Echo, HBA1c, lipid profile B12, Thiamine, and Carotid Doppler and extensive beside ophthalmoscopy #Further workup based on the results, will consult Ophthalmology based on clinical judgement afterwards, otherwise outpatient follow up #In the absence of significant neurological compromise outside of vision will NOT consider neurology consult. #Abstain from driving and operating machinery for now #Scheduled loratadine 10 mg daily started al #Avoid penicillin group of abx, continue iv doxycycline #Anxiety disorder as needed Atarax q6 prn, patient will consider and discuss SSRI with PCP #Continue albuterol q6hr prn while awake nebs #Ambulatory, continue ambulation, low risk of fall, if less ambulatory consider SCD, no need of Lovenox otherwise #Weight loss counseling and regular diet for now. #Given possible sinusitis will hold nasal steroids for now till complications ruled out. Code status: Full code, loss of care discussed with 37 minutes along with care plan. Patient is agreeable. Patient is admitted for further workup and ruling out acute pathologic of neurovascular visual which seems less likely, outpatient ophthalmology follow up for further expert evaluation. NO need of urgent ophthalmology consult, discussed with ophthalmology, Dr. Albarran. Discussed with Dr. Escobar. Plan discussed with: Patient My Orders Orders - MERCEDES DUMONT RESIDENT Procedure Category Date Status Time Admit ADMIT 02/17/25 Transmitted 20:41 Allergies NINA 02/17/25 In Process 20:41 Code Status CODE 02/17/25 Transmitted 20:41 Ondansetron Hcl PHA 02/17/25 In Process (Zofran) 20:45 Docusate Sodium PHA 02/17/25 In Process Capsule (Colace 20:45 Complete Blood Count LAB 02/18/25 Verified 04:00 Comprehensive LAB 02/18/25 Verified Metabolic Panel 04:00 Echo 2d Mode Cardiac US 02/17/25 Logged DOP 20:41 Carotid Duplx W Color US 02/17/25 Resulted DOP 20:41 Condition: Fair NINA 02/17/25 In Process 20:41 Acetaminophen Tablet PHA 02/17/25 In Process (Tylenol Tablet) 20:45 Morphine Sulfate PHA 02/17/25 In Process Injection 20:45 Sequential NINA 02/17/25 In Process Compression Device Nitroglycerin PHA 02/17/25 In Process Sublingual (Ntrostat 20:45 Morphine Sulfate PHA 02/17/25 In Process Injection 20:45 Oxygen By Nasal RT 02/17/25 Transmitted Cannula 20:41 Stat Ekg For Chest NINA 02/17/25 In Process Pain 20:41 Notify Of Changes NINA 02/17/25 In Process From Base 20:41 It Lead For NINA 02/17/25 In Process 24 Hours 20:41 Emergency Dysrhythmia NINA 02/17/25 In Process Protocol 20:41 Rhythm Strips Once NINA 02/17/25 In Process Every Shift 20:41 Electrocardigram EKG 02/17/25 Logged 20:41 Drug Screen LAB 02/17/25 Logged 20:41 Urinalysis LAB 02/17/25 Logged 20:41 Erythrocyte LAB 02/17/25 In Process Sedimentation Rate 20:41 Thyroid Stimulating LAB 02/17/25 In Process Hormone 21:03 Regular Diet DIET 02/18/25 Transmitted Breakfast Hydroxyzine Oral PHA 02/17/25 In Process (Vistaril Oral) 21:15 Loratadine Tablet PHA 02/18/25 In Process (Claritin Tablet) 10:00 Albuterol Medneb PHA 02/17/25 In Process (Ventolin Medneb) 21:15 Prothrombin Time W/ LAB 02/17/25 In Process INR 21:26 Hemoglobin A1c LAB 02/17/25 In Process 21:26 Lipid Panel LAB 02/18/25 Verified 04:00 Lactated Ringer's PHA 02/17/25 Logged 21:30 Vitamin B1 (Thiamine) LAB 02/17/25 Logged 21:30 Vitamin B12 LAB 02/17/25 In Process 21:30 Doxycycline PHA 02/17/25 Logged 100mg/100ml 21:45 Date of Service: Feb 17, 2025 Billing Provider: RAMIREZ ESCOBAR MD Common Visit Codes: 95452-BIWHMST INP/OBS CARE (HIGH) Secondary Visit Codes: 27991-ZPLHODED CARE PLAN 30 MINUTES MERCEDES DUMONT RESIDENT Feb 17, 2025 21:57
[2025-02-17] MEDS: DOXYCYCLINE 100MG/100ML 100 ML IV SCH (22:02)
[2025-02-17 22:06] LABS: INR 1.03 (0.9-1.15); Prothrombin Time 10.9 sec (9.3-11.8)
[2025-02-17] MEDS: LACTATED RINGER'S 1,000 ML IV SCH (22:14)
[2025-02-17 22:51] LABS: Erythrocyte Sedimentation Rate 12 mm/hr (0-20)
[2025-02-17 23:36] VITALS: BP 143/77; PULSE 65; RESP 16; TEMP 97.7; O2SAT 99
[2025-02-18] VITALS (11 sets, daily range): BP systolic 129–146; BP diastolic 83–92; PULSE 65–87; RESP 14–18; TEMP 97.7–98.5; O2SAT 98–100
[2025-02-18] MEDS ORDERED: amLODIPine BESYLATE 5 MG TAB PO ONE (02:45)
[2025-02-18] MEDS: ALBUTEROL SULF 2.5 MG/0.5ML(0.5%) NEB SOLN NEB PRN (06:14)
[2025-02-18 06:37] LABS: Basophils # (auto) 0 10 ^3/uL (0-0.2); Basophils % (auto) 0.5 % (0.0-2.0); Eosinophils # (auto) 0.2 10 ^3/uL (0-0.8); Eosinophils % (auto) 2.7 % (0.0-7.0); Hematocrit 37.3 % (36.0-46.0); Hemoglobin 13.1 g/dL (12.2-16.2); Lymphocytes # (auto) 2.5 10 ^3/uL (0.4-5.4); Lymphocytes % (auto) 35.5 % (10.0-50.0); Mean Corpuscular Hemoglobin 31.1 pg (28.0-32.0); Mean Corpuscular Hgb Conc. 35.1 g/dL (32.0-36.0); Mean Corpuscular Volume 88.6 fL (80.0-100.0); Monocytes # (auto) 0.6 10 ^3/uL (0-1.3); Monocytes % (auto) 8.1 % (0.0-12.0); Neutrophils # (auto) 3.8 10 ^3/uL (1.6-8.6); Neutrophils % (auto) 53.2 % (37.0-80.0); Nucleated Red Blood Cells % 0.1 %; Platelet Count (auto) 198 10^3/uL (140-450); Red Blood Cells 4.21 10^6/uL (4.0-5.20); Red Cell Distribution Width 12.7 % (11.8-14.3); White Blood Cell 7.2 10^3/uL (4.4-10.8)
[2025-02-18 07:01] LABS: Alanine Aminotransferase 14 U/L (7-40); Anion Gap 10 (5-15); Calcium 8.8 mg/dL (8.7-10.4); Carbon Dioxide 23 mmol/L (20-31); Chloride 106 mmol/L (98-107); Potassium 4.2 mmol/L (3.5-5.1); Sodium 139 mmol/L (136-145)
[2025-02-18 07:02] LABS: Total Protein 6.7 g/dL (5.7-8.2)
[2025-02-18 07:03] LABS: Aspartate Aminotransferase 14 U/L (13-40); Bilirubin, Total 0.7 mg/dL (0.2-1.0); Blood Urea Nitrogen 8 mg/dL (9-23); Glucose 70 mg/dL (74-106)
[2025-02-18 07:42] LABS: Alkaline Phosphatase 38 U/L (46-116)
[2025-02-18] MEDS: ACETAMINOPHEN 325 MG TAB PO PRN (09:59)
[2025-02-18] MEDS: LORATADINE 10 MG TAB PO SCH (10:00)
--- NOTE | 2025-02-18 11:16 | DVH ---
PROCEDURE: MRI BRAIN HEAD WO CONTRAST Indication: rule out intracranial pathology COMPARISON: 02/16/2025 TECHNIQUE: Multiplanar multisequence images of the brain are obtained. FINDINGS: There is no abnormal diffusion restriction. There is no intracranial hemorrhage. No extra-axial flui d collection, mass effect or midline shift. The ventricles are midline and normal in size. The cister ns are patent. Normal intracranial flow voids are preserved. No abnormal susceptibility signal. The sinuses and mastoids are well pneumatized. The visualized orbits are unremarkable. IMPRESSION: 1. No acute cerebrovascular ischemia.
--- NOTE | 2025-02-18 13:42 | DVHSR ---
APPROVED REPORT EXAM: Two-dimensional and M-mode echocardiogram with Doppler and color Doppler. Blood Pressure: 137/83 mmHg INDICATION Rule out structural heart disease RISK FACTORS Height: 67, Weight: 194 DIMENSIONS LVDd4.5 (3.8-5.7cm)LA (2D)4.4 (1.9-4.0cm)Aortic Root3.0 (2.0-3.7cm) LVDs3.2 (2.5-4.0cm)LA (MM) (1.9-4.0cm)Aortic Cusp Exc1.6 (1.5-2.0cm) EF (%) 57.0 (55-70%)Rt. Atrium3.3 (1.9-4.0cm)Asc. Aorta cm IVSd1.0 (0.7-1.1cm)RV (D) (1.8-2.4cm) PWd0.9 (0.7-1.1cm) Mitral Valve MitralMitral Stenosis E wave1.14m/sMV Mean GR.mmHg A wave0.66m/sMV Peak GR.mmHg E/A ratio1.72D MVAcm2 DECEL [id number] 1/2 [id number] IVRTmsDop MVA2.52cm2 Aortic Valve Aortic ValveAortic Stenosis V11.03m/[place] Mean GR.5mmHg V21.54m/[place] Peak GR.10mmHg LVOT Diameter2.0 (1.8-2.4cm)Doppler AVA2.10cm2 Pulmonic Valve V21.04m/s Conclusion lvef 70% normal diastolic function normal rv function normal atria no severe valve abnormaliteis noted
[2025-02-18 15:52] LABS: Triglycerides 52 mg/dL (< 150)
[2025-02-18 15:53] LABS: Cholesterol 153 mg/dL (< 200)
[2025-02-18 15:54] LABS: HDL Cholesterol 42 mg/dL (40-59); LDL Cholesterol 106 mg/dL (< 100)
[2025-02-18] MEDS: hydrOXYzine HCL 10 MG TAB PO PRN (16:15)
--- NOTE | 2025-02-18 20:09 | DVHPNRES ---
Progress Note Date Seen: Feb 18, 2025 Resident Creating Document: MATTHEW BETANCOURT BART Has the PT tested + for MRSA If YES, has PT been informed?: No Medical Necessity Reason Pt with a Central, PICC or Fol: No Subjective Review of Systems Ms. Sesay, is a 25-year-old female with past medical history of obesity, allergic rhinitis, seasonal allergy, asthma, primary headache and anxiety presents to the ED with a chief complaint of blurred vision in the left eye, ongoing for several days. She arrived ambulatory and reports no prehospital treatment. She was evaluated yesterday for the same issue and followed up with her PCP today, who suggested the symptoms may be related to sinus issues and anxiety, prescribing antibiotics. She denies associated symptoms including nausea, vomiting, headache, dizziness, vision loss, or photophobia. On examination, all ocular structuresincluding lids, conjunctiva, cornea, pupils, extraocular movements, fundus, and anterior chamberwere normal and noncontrast CT head was negative as well. The differential diagnosis includes anxiety reaction and migraine with aura (intractable, with status migraines), given the patient's recurrent left-sided eye pain, blurry vision, and headache despite a benign CT scan and multiple prior evaluations without relief and recurrent ED visits was admitted to rule out acute neurovascular conditions to preserve vision. Last ED visit a day before. Her PCP is Dr. Burch. Past Medical History obesity, allergic rhinitis, seasonal allergy, asthma, primary headache and anxiety Patient seen and examined at the bedside. Patient is still complaining of intractable headache and blurry vision. Patient reports: No new complaints, Feels better Changes from previous H/P or p: Changes Objective vital signs Vital Sign Date Time Temp Pulse Resp B/P (MAP) Pulse Ox O2 Delivery O2 Flow Rate FiO2 02/18/25 17:00 98.5 87 17 131/87 (102) 100 98.5 02/18/25 08:00 Room Air* 0 21 Total Intake and Output 02/17/25 02/17/25 02/18/25 15:00 23:00 07:00 Intake Total 450 ml Balance 450 ml medications Current Medications Medications Dose Ordered Sig/Erna Route Start Time Stop Time Status Last Admin Dose Admin Acetaminophen 650 mg Q6HP PRN PO 02/17/25 20:45 02/18/25 09:59 650 MG Hydroxyzine HCl 10 mg Q6HP PRN PO 02/17/25 21:15 02/18/25 16:15 10 MG Loratadine 10 mg DAILY PO 02/18/25 10:00 02/18/25 10:00 10 MG Albuterol 2.5 mg Q6HWA PRN NEB 02/17/25 21:15 02/18/25 06:14 2.5 MG Doxycycline Monohydrate 100 mg Q12HR PO 02/18/25 22:00 Examination General Appearance: Alert, Oriented X3, Cooperative, No acute distress HEENT: Atraumatic, PERRLA, EOMI, Mucous membrane moist/pink, blurry vision of left eye with decreased visual acuity Respiratory: Clear to auscultation, Normal air movement Cardiovascular: Regular rate, Normal S1, Normal S2, No murmurs, no chest wall tenderness Abdominal: Normal bowel sounds, Soft, No tenderness, No hepatospenomegaly, No masses Extremities: No clubbing, No cyanosis, No edema, Normal pulses, No tenderness/swelling Skin: No rashes, No breakdown, No significant lesion Neuro: Normal gait, Normal speech, Strength at 5/5 X4 ext, Normal tone, Sensation intact, Cranial nerves 3-12 NL, Reflexes 2+ Psych/Mental Status: Mental status NL, Mood NL laboratory and microbiology Laboratory Tests 02/18/25 05:14 Test 02/18/25 05:14 Range/Units Serum Glucose 70 L 74-106 mg/dL Labs and/or images reviewed: Labs reviewed by me, Image(s) reviewed by me Problem List/Assessment/Plan Problem List/Assessment/Plan Intractable headache, likely due to tension headache/sinusitis ? Acute sinusitis, likely due to Gram-positive Gram-negative bacteria/viral Allergic rhinitis Anxiety Obesity Ruled out stroke/TIA Ruled out asthma Mild hypercalcemia Hypertension * MRI, shows no acute intracranial abnormalities * Carotid Doppler shows no significant carotid artery disease Plan/recommendation: * Empiric Vic durand has not the GI on antibiotic doxycycline * Pain killer * IV fluid carbamazepine * Hydroxyzine * Breathing treatment DIET: Regular diet DVT PROPHYLAXIS: Patient is mobile, no need for anticoagulation CODE STATUS: Goal of care discussed for more than 18 minutes, full code DISPOSITION: Med/surge Patient's status and plan discussed with the patient. Case discussed with Dr. Orosco. Plan discussed with: Patient, Other (RN) My Orders My Orders Orders - MATTHEW BETANCOURT RESDIENT Procedure Category Date Status Time Covid19 Antigen Celena LAB 02/18/25 Logged Rapid Influenza A&B LAB 02/18/25 Logged 07:08 Doxycycline Tablet PHA 02/18/25 In Process (Vibramycin Tablet) 22:00 MATTHEW BETANCOURT RESDIENT Feb 18, 2025 20:09
[2025-02-18] MEDS: DOXYCYCLINE 100 MG TAB/CAP PO SCH (21:07)
[2025-02-18 23:52] LABS: COVID19 ANTIGEN SOFIA FIA NEGATIVE (NEGATIVE)
[2025-02-18 23:53] LABS: Rapid Influenza A Negative (Negative); Rapid Influenza B Negative (Negative)
[2025-02-19 01:00] VITALS: BP 115/71; PULSE 62; RESP 18; TEMP 98.5; O2SAT 97
[2025-02-19 05:00] VITALS: BP 124/73; PULSE 63; RESP 18; TEMP 97.7; O2SAT 98
[2025-02-19 05:07] LABS: Basophils # (auto) 0 10 ^3/uL (0-0.2); Basophils % (auto) 0.5 % (0.0-2.0); Eosinophils # (auto) 0.2 10 ^3/uL (0-0.8); Eosinophils % (auto) 2.9 % (0.0-7.0); Hematocrit 36.5 % (36.0-46.0); Hemoglobin 12.7 g/dL (12.2-16.2); Lymphocytes # (auto) 2.4 10 ^3/uL (0.4-5.4); Lymphocytes % (auto) 41.2 % (10.0-50.0); Mean Corpuscular Hemoglobin 30.9 pg (28.0-32.0); Mean Corpuscular Hgb Conc. 34.7 g/dL (32.0-36.0); Monocytes # (auto) 0.5 10 ^3/uL (0-1.3); Monocytes % (auto) 8.1 % (0.0-12.0); Neutrophils # (auto) 2.8 10 ^3/uL (1.6-8.6); Neutrophils % (auto) 47.3 % (37.0-80.0); Nucleated Red Blood Cells % 0.1 %; Platelet Count (auto) 188 10^3/uL (140-450); Red Blood Cells 4.09 10^6/uL (4.0-5.20); Red Cell Distribution Width 12.2 % (11.8-14.3); White Blood Cell 5.9 10^3/uL (4.4-10.8)
[2025-02-19 05:29] LABS: Alanine Aminotransferase 13 U/L (7-40); Albumin 3.9 g/dL (3.2-4.8); Anion Gap 10 (5-15); Aspartate Aminotransferase 13 U/L (0-34); Bilirubin, Total 0.7 mg/dL (0.2-1.0); Blood Urea Nitrogen 10 mg/dL (9-23); Calcium 8.9 mg/dL (8.7-10.4); Carbon Dioxide 23 mmol/L (20-31); Chloride 106 mmol/L (98-107); Glucose 75 mg/dL (74-106); Potassium 3.9 mmol/L (3.5-5.1); Sodium 139 mmol/L (136-145); Total Protein 6.4 g/dL (5.7-8.2)
[2025-02-19 05:30] LABS: Alkaline Phosphatase 36 U/L (46-116)
[2025-02-19 05:49] VITALS: O2SAT 98
[2025-02-19 08:00] VITALS: PULSE 54
[2025-02-19 08:30] VITALS: BP 126/80; PULSE 53; RESP 18; TEMP 97.2; O2SAT 99
[2025-02-19] MEDS ORDERED: amLODIPine BESYLATE 5 MG TAB PO SCH (10:00)
[2025-02-19 12:42] VITALS: BP 132/92; PULSE 76; RESP 18; TEMP 98.2; O2SAT 100
[2025-02-19] MEDS: KETOROLAC TROMETH 30 MG/ML 1ML VIAL IV ONE (13:39)
--- NOTE | 2025-02-19 21:46 | DVHDSRES ---
Discharge Summary Date of Admission Resident Creating Document: MATTHEW BETANCOURT RESDIENT Feb 17, 2025 at 20:41 Date of Discharge: Feb 19, 2025 Labs/Diagnostic Data: Laboratory Results Test 02/19/25 04:14 02/18/25 23:00 02/18/25 05:14 02/17/25 21:51 White Blood Count 5.9 10^3/uL (4.4-10.8) Red Blood Count 4.09 10^6/uL (4.0-5.20) Hemoglobin 12.7 g/dL (12.2-16.2) Hematocrit 36.5 % (36.0-46.0) Mean Corpuscular Volume 89.0 fL (80.0-100.0) Mean Corpuscular Hemoglobin 30.9 pg (28.0-32.0) Mean Corpuscular Hemoglobin Concent 34.7 g/dL (32.0-36.0) Red Cell Distribution Width 12.2 % (11.8-14.3) Platelet Count 188 10^3/uL (140-450) Mean Platelet Volume 7.7 fL (6.9-10.8) Neutrophils (%) (Auto) 47.3 % (37.0-80.0) Lymphocytes (%) (Auto) 41.2 % (10.0-50.0) Monocytes (%) (Auto) 8.1 % (0.0-12.0) Eosinophils (%) (Auto) 2.9 % (0.0-7.0) Basophils (%) (Auto) 0.5 % (0.0-2.0) Neutrophils # (Auto) 2.8 10 ^3/uL (1.6-8.6) Lymphocytes # (Auto) 2.4 10 ^3/uL (0.4-5.4) Monocytes # (Auto) 0.5 10 ^3/uL (0-1.3) Eosinophils # (Auto) 0.2 10 ^3/uL (0-0.8) Basophils # (Auto) 0 10 ^3/uL (0-0.2) Nucleated Red Blood Cells 0.1 % Sodium Level 139 mmol/L (136-145) Potassium Level 3.9 mmol/L (3.5-5.1) Chloride Level 106 mmol/L (98-107) Carbon Dioxide Level 23 mmol/L (20-31) Anion Gap 10 (5-15) Blood Urea Nitrogen 10 mg/dL (9-23) Creatinine 0.91 mg/dL (0.550-1.02) Glomerular Filtration Rate Calc 91 mL/min (>90) BUN/Creatinine Ratio 11.0 (10.0-20.0) Serum Glucose 75 mg/dL (74-106) Calcium Level 8.9 mg/dL (8.7-10.4) Total Bilirubin 0.7 mg/dL (0.2-1.0) Aspartate Amino Transferase (AST) 13 U/L (0-34) Alanine Aminotransferase (ALT) 13 U/L (7-40) Alkaline Phosphatase 36 U/L (46-116) Total Protein 6.4 g/dL (5.7-8.2) Albumin 3.9 g/dL (3.2-4.8) Influenza Type A Antigen Negative (Negative) Influenza Type B Antigen Negative (Negative) SARS-CoV-2 Antigen (Rapid) Negative (NEGATIVE) Triglycerides Level 52 mg/dL (< 150) Cholesterol Level 153 mg/dL (< 200) LDL Cholesterol 106 mg/dL (< 100) HDL Cholesterol 42 mg/dL (40-59) Test 02/17/25 21:03 02/17/25 16:46 Erythrocyte Sedimentation Rate 12 mm/hr (0-20) Prothrombin Time 10.9 sec (9.3-11.8) Prothrombin Time INR 1.03 (0.9-1.15) D-Dimer, Quantitative 0.20 mg/L FEU (0.0-0.49) C-Reactive Protein High Sensitivity 0.23 mg/dL (<1.0) Vitamin B12 Level 348 pg/mL (211-911) Thyroid Stimulating Hormone (TSH) 1.20 uIU/mL (0.55-4.78) Plasma/Serum Blood Alcohol < 3.0 mg/dL (<10) Hemoglobin A1c 5.0 % A1C (<5.7) Other Laboratory Tests 02/19/25 04:14 Final Diagnosis/Problems List Tension headaches Discharge Disposition: Home Discharge Instruct/Medications Diet: Regular Activity: No Restrictions, As Tolerated Follow Up/Referral: Follow up with the PCP within 1 week of the discharge. Follow up with the Ophthalmology, if blurry vision persists. Medications: Ibuprofen 400 mg twice daily as needed for headache. Discharge Statement: "Patient was advised to return to the ER or call 911 if any headaches, dizziness, shortness of breath, chest pain, abdominal pain, bleeding, fevers, or worsening of medical condition. Patient was counseled about treatment plan, medications, possible side effects, patientverbalized understanding. All questions were answered to the best of my ability. This discharge took greater then 30 minutes in planning, reviewing documentation, counseling the patient, and discussing with other team members." ASSESSMENT ASSESSMENT Assessment Tension headaches MATTHEW BEATNCOURT [facility] Feb 19, 2025 21:46
--- NOTE | 2025-02-20 11:03 | ECG ---
[facility] Test Date: 2025-02-18 Test Time: 19:37:18 Pat Name: SANDRA CARTER Department: Respiratoy Room: 0212T B Gender: F Unit [employer]sembler: OLIVE : 2000 Requested By: MATTHEW BETANCOURT Order Number: [id number] Reading MD: Sourav Lala Measurements Intervals [place] Rate: 82 P: 20 ME: 138 QRS: 74 QRSD: 96 T: 17 QT: 377 QTc: 441 Interpretive Statements Sinus rhythm RSR' in V1 or V2, right VCD or RVH Electronically Signed On 02-21-2025 17:35:16 PDT by Sourav Lala Please click the below link to view image of tracing.
== END 2025-02-19 14:30 | disposition home or self-care (01) | DRG 54 ==
LOC: ER 14:48 → OVERFLOW 20:41 → TELE-CENTR 20:52
PROVIDERS: ADMIT Student in an Organized Health Care Education/Training Program; ATTEND Student in an Organized Health Care Education/Training Program
DX: G44.209 Tension-type headache, unspecified, not intractable (principal); E66.9 Obesity, unspecified; J30.9 Allergic rhinitis, unspecified; E83.52 Hypercalcemia; I10 Essential (primary) hypertension; F41.9 Anxiety disorder, unspecified; J30.2 Other seasonal allergic rhinitis; Z71.3 Dietary counseling and surveillance; Z88.0 Allergy status to penicillin; Z68.30 Body mass index [BMI] 30.0-30.9, adult; Z79.899 Other long term (current) drug therapy
CPT/HCPCS: 36415; 70551; 80048; 80053; 80061; 80320; 82607; 83036; 84425; 84443; 85025; 85379; 85610; 85652; 86141; 87426; 87804; 93005; 93306; 93886; 94640; 96361; 96374; G0378; J1885